=== PATIENT | female | born 1965 | race Caucasian/White ===

== ENCOUNTER 2019-06-13 12:44 | Emergency (ER) | payer BC ==
[2019-06-13 12:52] VITALS: TEMP 97.6; BMI 34.0
[2019-06-13] MEDS ORDERED: CLINDAMYCIN 600MG PREMIX IVPB 600 MG/50 ML BAG IVPB ONE ×2 (13:23→13:55)
--- NOTE | 2019-06-13 13:33 | PDOC ---
History of Present Illness - General Chief Complaint: Wound Stated Complaint: LT FOOT WOUND Time Seen by Provider: 06/13/19 13:10 History Source: Patient Exam Limitations: No Limitations - History of Present Illness Initial Comments: 06/13/19 13:34 53-year-old female With history of diabetes presents the emergency room for evaluation of bilateral foot wounds. 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 Patient here for evaluation. Patient denies any fever, chills or sensory changes to deep but does state intermittent tingling secondary to diabetes to the toes. Patient denies any foul-smelling drainage, streaking up the leg, or radiation of pain. Timing/Duration: constant Severity: mild Associated Symptoms: denies: fever/chills Past History - Travel Traveled outside of the country in the last 30 days: No Close contact w/someone who was outside of country & ill: No - Past Medical History Allergies/Adverse Reactions: Allergies Allergy/AdvReac Type Severity Reaction Status Date / Time aspartame Allergy Verified 06/13/19 12:52 Home Medications: Ambulatory Orders Clindamycin [Cleocin -] 300 mg PO TID #19 capsule 06/13/19 COPD: No Diabetes: Yes (IDDM) HTN: Yes Hypercholesterolemia: Yes - Suicide/Smoking/Psychosocial Hx Smoking History: Former smoker Have you smoked in the past 12 months: No Information on smoking cessation initiated: No Patient Lives Alone: No Lives with/in: spouse/SO Review of Systems - Review of Systems Able to Perform ROS?: Yes Constitutional: No: Symptoms Reported Respiratory: No: Symptoms reported Musculoskeletal: No: Symptoms Reported Integumentary: Yes: Erythema Neurological: No: Symptoms reported Endocrine: No: Symptoms Reported Hematologic/Lymphatic: No: Symptoms Reported *Physical Exam - Vital Signs Last Vital Signs Temp Pulse Resp BP Pulse Ox 97.6 F 104 H 18 136/81 99 06/13/19 12:48 06/13/19 12:48 06/13/19 12:48 06/13/19 12:48 06/13/19 12:48 - Physical Exam General Appearance: Yes: Nourished, Appropriately Dressed. No: Apparent Distress Neck: positive: Supple Respiratory/Chest: positive: Lungs Clear, Normal Breath Sounds. negative: Respiratory Distress, Accessory Muscle Use Cardiovascular: positive: Regular Rhythm, Tachycardia. negative: Murmur Integumentary: positive: Other (Noted erythematous blisters to the lateral aspect of left and right fifth toe along with a scab crusted wound measuring approximately 1 x 2 cm to the lateral aspect of left malleolus. Small pea-sized crusted scab to the right heel. Pea sized vesicle to the dorsal aspect of right first toe. No foul odor, no increased warmth no streaking surrounding skin intact) Neurologic: positive: Motor Strength 5/5 (ambulatory) Medical Decision Making - Medical Decision Making 06/13/19 13:44 Chief complaint: Bilateral toe secondary to ill fitting shoes she wore 2 days prior patient states glucose has been in the 200s. Patient has no other complaints at this time Exam: Patient with blisters to bilateral feet with no signs of active infection/ streaking Plan: Case discussed with patient's sales development director and he is recommending admission stating the patient is a "uncontrolled diabetic" patient states last BGM was in the 200s. I will give her a dose of clindamycin 600 mg for from a BGM and depending on glucose will consider inpatient versus outpatient treatment 06/13/19 14:01 Will discharge home after dose of clindamycin. BGM 120 *DC/Admit/Observation/Transfer Diagnosis at time of Disposition: Wound of foot - Discharge Dispostion Disposition: HOME - Prescriptions Prescriptions: Clindamycin [Cleocin -] 300 mg PO TID #19 capsule - Referrals Referrals: Desi Jimenez [Primary Care Provider] - - Patient Instructions Printed Discharge Instructions: DI for Wound Infection Additional Instructions: Elevate your feet when not walking around. Try not to wear any footwear when walking around the house since you do not suffer from any sensory changes to the feet secondary to diabetes. Apply bacitracin at night to avoid friction from the sheets/covers Take antibiotics starting tonight since you were given a double dose here in the ER. Rinse your feet lastly after showering. Continue to check your sugar and be aware of increased redness, swelling, drainage or streaking up the leg. If any the symptoms are noted please return to the ED immediately. - Post Discharge Activity Forms/Work/School Notes: Back to Work
[2019-06-13 14:51] VITALS: BP 130/78; PULSE 87
== END 2019-06-13 14:51 | disposition home or self-care (01) ==
LOC: JER 12:44
DX: S90.821A Blister (nonthermal), right foot, initial encounter (principal); E11.65 Type 2 diabetes mellitus with hyperglycemia; Z79.4 Long term (current) use of insulin; S90.822A Blister (nonthermal), left foot, initial encounter; X58.XXXA Exposure to other specified factors, initial encounter; Y93.89 Activity, other specified; Y92.018 Other place in single-family (private) house as the place of occurrence of the external cause; Y99.8 Other external cause status
CPT/HCPCS: 82962; 87070; 87205; 99282-25

== ENCOUNTER 2019-06-16 09:56 | Emergency (ER) | payer BC | END 2019-06-16 12:55 | disposition home or self-care (01) | LOC: JERFT 09:56 ==

== ENCOUNTER 2019-06-19 08:53 | Emergency (ER) | payer BC ==
[2019-06-19 09:00] VITALS: BP 126/81; PULSE 98; TEMP 97.9; BMI 27.2
--- NOTE | 2019-06-19 09:28 | PDOC ---
Suture Removal/Wound Check HPI - History of Present Illness Chief Complaint: Revisit,Wound Recheck Stated Complaint: WOUND CHECK Time Seen by Provider: 06/19/19 09:05 History Source: Yes: Patient Exam Limitations: Yes: No Limitations [facility] Date of Last ED visit: 06/16/19 Past History - Travel Traveled outside of the country in the last 30 days: No Close contact w/someone who was outside of country & ill: No - Past Medical History Allergies/Adverse Reactions: Allergies Allergy/AdvReac Type Severity Reaction Status Date / Time aspartame Allergy Verified 06/19/19 08:55 Home Medications: Ambulatory Orders Clindamycin [Cleocin -] 300 mg PO TID #19 capsule 06/13/19 Clindamycin [Cleocin -] 300 mg PO TID #21 capsule 06/19/19 COPD: No Diabetes: Yes (IDDM) HTN: Yes Hypercholesterolemia: Yes - Suicide/Smoking/Psychosocial Hx Smoking History: Never smoked Have you smoked in the past 12 months: No Hx Alcohol Use: No Drug/Substance Use Hx: No Suture Removal/Wound Check PE - Physical Exam Laceration/Wound Check Symptoms: reports: Redness (mild redness on the L lateral malleolus, unchanged from 4 days ago.), Improved (crusted over the L lateral pinky toe, no erythema or redness), Other Comment (wounds are dry). denies: Discharge Current Severity Level: None Maximum Severity Level: None Location of Laceration/Wound: bilateral: Toe (5th toes with eschar, no erythema. L lat malleolus with healing wound and surrounding erythema(unchanged) ) Pain Radiation: None *Review of Systems - Review of Systems Constitutional: No: Chills, Fever, Weakness Integumentary: Yes: Erythema (L lat malleolus), Other (wounds to B/L 5th toes) Neurological: No: Numbness, Paresthesia, Weakness *Physical Exam - Vital Signs Last Vital Signs Temp Pulse Resp BP Pulse Ox 97.9 F 98 H 16 126/81 99 06/19/19 08:57 06/19/19 08:57 06/19/19 08:57 06/19/19 08:57 06/19/19 08:57 - Physical Exam General Appearance: Yes: Nourished, Appropriately Dressed. No: Apparent Distress Vascular Pulses: Dorsalis-Pedis (R): 2+, Doralis-Pedis (L): 2+ Extremity: positive: Normal Capillary Refill, Normal Range of Motion Integumentary: positive: Dry, Warm, Other (see wound check note) Neurologic: positive: Fully Oriented, Alert, Normal Mood/Affect, Normal Response , Motor Strength 5/5 Medical Decision Making - Medical Decision Making 06/19/19 09:23 he patient is a 53-year-old female with past medical history of non-insulin- dependent diabetes, who presents to the ER today for wound check to her left fifth toes bilaterally. She was seen on Saturday06/16/19 by myself. She notes that she has let the toes and dry and has not put any thing on the wound. She states that she feels as if they're getting better. Denies pain to the area, numbness and tingling. Denies discharge or increasing redness. A/P: Wound check On exam the lateralfifth toes bilaterally are healing no signs of erythema at this time. Escar present on the L 5th toe without evidence of infection. No pain to palpation The wound on the L lateral mallolus still with some surrounding erythema; given hx of dm, will extend abx for one week Pt to find a new podietrist; gave strict return precautions should the wounds worsen DC home I discussed the physical exam findings, ancillary test results and final diagnoses with the patient. I answered all of the patient's questions. The patient was satisfied with the care received and felt comfortable with the discharge plan and treatment plan. The Patient agrees to follow up with the primary care physician/specialist within 24-72 hours. Return precautions were given. *DC/Admit/Observation/Transfer Diagnosis at time of Disposition: Wound of foot - Discharge Dispostion Disposition: HOME Condition at time of disposition: Stable Decision to Admit order: No - Referrals Referrals: Jame Alonzo MD [Staff Physician] - - Patient Instructions Printed Discharge Instructions: DI for Wound Infection Additional Instructions: Your toes have improved since last visit Keep the area clean and dry Keep the areas covered while at work and you may wear open toed shoes to prevent rubbing Continue the Clindamycin for one more week. Take with food Follow up with podietry this week. A referral has been provided to you Return to the ER if the areas get more red, painful, have purulent discharge, or if you have any changes in your symptoms - Post Discharge Activity Forms/Work/School Notes: Back to Work
== END 2019-06-19 09:30 | disposition home or self-care (01) ==
LOC: JERFT 08:53
DX: Z48.00 Encounter for change or removal of nonsurgical wound dressing (principal)
CPT/HCPCS: 99281-25